=== PATIENT | female | born 1995 | race Caucasian/White ===

== ENCOUNTER 2023-01-27 07:16 | Outpatient (REF) | payer BC, SELFPAY ==
[2023-01-27 07:38] LABS: MANUAL DIFF FLAG NO
[2023-01-27 08:26] LABS: Basophils Percent Auto 0.5 % (0-2); Eosinophils Absolute Auto 0.1 X10*3/uL (0.0-0.4); Hemoglobin 13.6 g/dl (12.0-16.0); Imm Gran Abs Auto 0.01 X10*3/uL (0.00-0.03); Imm Gran Pct Auto 0.2 % (0.0-0.4); Lymphocytes Absolute Auto 1.3 X10*3/uL (1.2-4.9); Mean Corpuscular HGB Conc 32.4 g/dl (31.0-35.0); Mean Corpuscular Hemoglobin 28.6 pg (27.0-33.0); Mean Corpuscular Volume 88.2 fL (80.0-98.0); Monocytes Absolute Auto 0.7 X10*3/uL (0.1-1.2); Monocytes Percent Auto 10.2 % (2-11); Neutrophils Absolute Auto 4.3 x10*3/uL (2.0-8.3); Neutrophils Percent Auto 67.1 % (45-73); Platelet Count 250 X10*3/uL (160-400); Red Blood Count 4.76 X10*6/uL (4.20-5.50); Red Cell Distribution Width 12.2 % (11.0-16.0); White Blood Count 6.4 X10*3/uL (4.8-10.8)
[2023-01-27 08:54] LABS: Alanine Aminotransferase 27 U/L (0-31); Albumin Level 4.2 g/dL (3.5-5.0); Alkaline Phosphatase 65 U/L (39-117); Anion Gap 10 (12-20); Aspartate Amino Transferase 23 U/L (5-31); Bilirubin Total 0.9 mg/dL (0.0-1.0); Blood Urea Nitrogen 13 mg/dL (9-16); Calcium 9.3 mg/dL (8.4-10.2); Carbon Dioxide 26 mmol/L (22-29); Chloride 113 mmol/L (96-108); Cholesterol 128 mg/dL; Estimated Glomerular Filt Rate > 60; Glucose Random 86 mg/dL (60-115); Potassium 4.8 mmol/L (3.3-5.1); Sodium 144 mmol/L (135-145); Total Protein 6.9 g/dL (6.5-8.0)
[2023-01-27 09:12] LABS: Free T4 (Free Thyroxine) 1.11 ng/dL (0.71-1.85); Thyroid Stimulating Hormone 0.03 uIU/mL (0.32-4.0)
[2023-01-29 08:34] LABS: Thyroid Peroxidase Antibodies 449 IU/mL (<9)
== END 2023-01-27 07:17 | disposition home or self-care (01) ==
LOC: HO.LAB 07:16
PROVIDERS: PCP Internal Medicine; Visit Provider Internal Medicine
DX: R00.2 Palpitations (principal); R94.6 Abnormal results of thyroid function studies
CPT/HCPCS: 36415; 80053; 82465; 84439; 84443; 85025; 86376

== ENCOUNTER → 2023-02-01 09:42 | Outpatient (REF) | payer BC, SELFPAY ==
--- NOTE | 2023-02-01 09:45 | HM_ITS ---
Conclusion: 1. Patient was monitored for total period of 3 days and 40 minutes 2. Baseline was normal sinus rhythm with average heart of 72 beats per minute 3. No significant pauses or bradycardia noted 4. Rare PACs noted with total burden of 0.03% 5. Patient reported 1 event with symptoms of chest tightness that correlated with sinus rhythm MTDD
== END ==
LOC: HO.CARD 09:42
PROVIDERS: PCP Internal Medicine; Visit Provider Internal Medicine
DX: R00.2 Palpitations (principal)
CPT/HCPCS: 93242

== ENCOUNTER → 2023-03-11 09:20 | Outpatient (REF) | payer BC, SELFPAY ==
--- NOTE | ~2023-03-11 | NM_ITS ---
EXAMINATION: THYROID UPTAKE AND SCAN CLINICAL INFORMATION: Hyperthyroid. Palpitations. TSH 0.03 miu/ml on 01/27/2023. COMPARISON: No previous thyroid imaging studies are available for comparison. TECHNIQUE: Following the oral administration of 282 microcuries of I-123 sodium iodide, thyroid uptake was performed and expressed as a percentage of the administrated dose. Gamma scintillation camera images of the thyroid in the anterior and right and left anterior oblique views were obtained using a pinhole collimator following the administration of 10 mCi Tc-99m pertechnetate. FINDINGS: The uptake is 19.4% at 4 hours and 38.6% at 24 hours (Normal radioiodine uptake at 24 hours is 10% to 30%). The radioiodine uptake is mildly elevated. The radiopertechnetate thyroid scintigram shows the thyroid gland to be normal in size. There is markedly increased trapping function diffusely, but this is homogeneous except for a tiny focus of decreased activity just barely visualized laterally in the mid left lobe. No other focal abnormalities are suggested. A single anterior radioiodine image obtained at the time of the 24-hour uptake measurement is similar to the radio pertechnetate image. NM/NM thyroid w uptake IMPRESSION: Normal-sized thyroid gland with markedly increased trapping function and mildly elevated radioiodine uptake. In the clinical setting of suppressed TSH, these findings are most consistent with Graves' disease. An equivocal hypofunctioning (cold) nodule is suggested laterally in the mid left lobe, but is not well delineated. Further characterization of this with thyroid ultrasonography is recommended.
== END ==
LOC: HO.NUCMED 09:20
PROVIDERS: PCP Internal Medicine; Visit Provider Internal Medicine
DX: E03.9 Hypothyroidism, unspecified (principal)
CPT/HCPCS: 78014; A9512; A9516

== ENCOUNTER 2023-04-21 16:45 | Outpatient (REF) | payer BC, SELFPAY ==
[2023-04-21 18:00] LABS: C Reactive Protein 0.27 mg/dL (< or = 0.50)
[2023-04-21 18:10] LABS: Free T4 (Free Thyroxine) 1.01 ng/dL (0.71-1.85)
[2023-04-21 18:28] LABS: Erythrocyte Sedimentation Rate 7 MM/HR (0-20)
[2023-04-23 21:18] LABS: Triiodothyronine T3 Free 3.4 pg/mL (2.3-4.2)
== END 2023-04-21 16:46 | disposition home or self-care (01) ==
LOC: HO.LAB 16:45
PROVIDERS: PCP Internal Medicine; Visit Provider Internal Medicine
DX: R53.83 Other fatigue (principal); E06.9 Thyroiditis, unspecified; K11.20 Sialoadenitis, unspecified
CPT/HCPCS: 36415; 84439; 84443; 84481; 85652; 86140